=== PATIENT | male | born 1975 | race American Indian/Alaskan Native ===

== ENCOUNTER 2020-12-01 22:15 | Emergency (ER) | payer OTHER ==
[2020-12-01 22:28] VITALS: BP 142/106
[2020-12-01] MEDS ORDERED: LIDOCAINE (2%) 20 MG/1 ML VIAL 20 ML MDV INFILTRATI STA (22:43)
[2020-12-01] MEDS ORDERED: TETANUS,DIPH,PERTUSS(ACELL) VACCINE 0.5 ML SYRINGE IM ONE (22:43)
--- NOTE | 2020-12-01 23:28 | XRay Report ---
LEFT FINGER, 3 VIEWS INDICATION / CLINICAL INFORMATION: crush injury with deformity and laceration. COMPARISON: None available. FINDINGS: There is comminuted nondisplaced fracture throughout the distal phalanx of the middle finger. The fra cture extends vertically into the DIP joint. There is significant associated soft tissue trauma throu ghout the distal middle finger. The middle phalanx and proximal phalanx of the middle finger appear u ninvolved. IMPRESSION: Grossly comminuted nondisplaced fracture involving the distal phalanx of the middle finge r, with intra-articular extension to the DIP joint. Signer Name: Ros Stiles MD Signed: 12/01/2020 11:23 PM Workstation Name: [id number]
[2020-12-02] MEDS ORDERED: ceFAZolin 1 GM VIAL IM STA (00:05)
--- NOTE | 2020-12-02 00:24 | Emergency Department Report ---
Upper Extremity - HPI Chief Complaint: Wound/Laceration Stated Complaint: LEFT MIDDLE FINGER LACERATION Time Seen by Provider: 12/01/20 22:42 Upper Extremity: Left Middle Finger Occurred When: Today Mechanism: Crush (Accidentally closed fingers and the general house door resulting in pain) Severity: moderate Symptoms: Yes Pain with Movement, Yes Laceration or Abrasion, No Deformity, No Limited Range of Movement, No Numbness, No Weakness, No Swelling, No Bruising/Ecchymosis Other History: Dull throbbing pain with moderate bleeding to the fingertip which with but the deformity at the tip of the finger. ED Review of Systems ROS: Stated complaint: LEFT MIDDLE FINGER LACERATION Other details as noted in HPI Comment: All other systems reviewed and negative ED Past Medical Hx - Past Medical History Previous Medical History?: Yes Hx Hypertension: Yes Additional medical history: denies - Surgical History Past Surgical History?: Yes Additional Surgical History: left leg - Social History Smoking Status: Current Every Day Smoker Substance Use Type: None - Medications Home Medications: Home Medications Medication Instructions Recorded Confirmed Last Taken Type Ibuprofen [Motrin 600 MG tab] 600 mg PO Q8H PRN #20 tablet 03/10/16 Unknown Rx levoFLOXacin [Levaquin TAB] 500 mg PO QDAY #10 tablet 03/10/16 Unknown Rx cephALEXin [Keflex] 500 mg PO Q8HR #30 cap 12/02/20 Unknown Rx Upper Extremity Exam - Exam General: Vital signs noted. No distress. Alert and acting appropriately. Head and Torso: No HEENT Abnormality, No Neck Tenderness, No Chest/Lungs A bnormality, No Abdominal Tenderness, No Back Tenderness Shoulder Exam: Yes Normal Range of Motion in Shoulder, No Shoulder Tenderness, No Clavicle Tenderness, No Shoulder Deformity, No AC Joint Tenderness Arm Exam: No Arm/Humerus Tenderness, No Arm Deformity Elbow: No Elbow Tenderness, No Normal Range of Motion in Elbow, No Elbow Deformity Forearm: No Forearm Tenderness, No Forearm Deformity, No Pain with Pronation, No Pain with Supination Wrist: Yes Normal ROM in Wrist, No Wrist Tenderness, No Wrist Deformity, No Snuffbox Tenderness, No Pain with Axial Thumb Compression Hand: Yes Hand Tenderness, Yes Normal ROM in Digit(s), No Hand Deformity, No Digit Tenderness, No Digit(s) Deformity, No Tendon Dysfunction CMS Exam: Yes Broken Skin, No Normal Distal Pulses, No Normal Capillary Refill, No Normal Distal Sensation Hand L/R Back: 1 - Arc shaped laceration to this range of region with a partial fingertip avulsion and flexion deformity to the DIP joint. ED Course Vital Signs 12/01/20 22:26 Temperature 98.2 F Pulse Rate 76 Respiratory 18 Rate Blood Pressure 142/106 [Right] O2 Sat by Pulse 97 Oximetry - Laceration /Wound Repair Left Finger Wound Location: upper extremity Wound Length (cm): 3 Wound's Depth, Shape: irregular Wound Explored: clean Irrigated w/ Saline (ccs): 50 Betadine Prep?: Yes Anesthesia: 1% Lidocaine Volume Anesthetic (ccs): 5 Wound Debrided: moderate Wound Repaired With: sutures Suture Size/Type: 4:0, proline Number of Sutures: 6 Layer Closure?: No Sterile Dressing Applied?: Yes ED Medical Decision Making - Radiology Data Radiology results: report reviewed [address] [place] [id number] XRay Report Signed Patient: DENISSE SILVERMAN MR#: [id number] : 1975 Acct:[id number] Age/Sex: 45 / M ADM Date: 12/01/20 Loc: ED Attending Dr: Ordering Physician: GERRY DIAZ Date of Service: 12/01/20 Procedure(s): XR finger(s) 2+V LT Accession Number(s): [id number] cc: GERRY DIAZ Fluoro Time In Minutes: LEFT FINGER, 3 VIEWS INDICATION / CLINICAL INFORMATION: crush injury with deformity and laceration. COMPARISON: None available. FINDINGS: There is comminuted nondisplaced fracture throughout the distal phalanx of the middle finger. The fracture extends vertically into the DIP joint. There is significant associated soft tissue trauma throughout the distal middle finger. The middle phalanx and proximal phalanx of the middle finger appear uninvolved. IMPRESSION: Grossly comminuted nondisplaced fracture involving the distal phalanx of the middle finger, with intra-articular extension to the DIP joint. Signer Name: Ros Stiles MD Signed: 12/01/2020 11:23 PM Workstation Name: [id number] Transcribed By: JR Dictated By: Ros Stiles MD Electronically Authenticated By: Ros Stiles MD Signed Date/Time: 12/01/202322 DD/ 20 TD/TT: Print Critical care attestation.: If time is entered above; I have spent that time in minutes in the direct care of this critically ill patient, excluding procedure time. ED Disposition Clinical Impression: Fracture, finger, open Disposition: DC-01 TO HOME OR SELFCARE Is pt being admited?: No Does the pt Need Aspirin: No Condition: Stable Instructions: Finger Fracture, Adult, [id number], Cast or Splint Care, Adult, [id number] Prescriptions: cephALEXin [Keflex] 500 mg PO Q8HR #30 cap Referrals: ARNOLD MACIAS MD [Staff Physician] - 3-5 Days
[2020-12-02] MEDS ORDERED: ACETAMINOPHEN 500 MG TAB PO ONE (03:53)
[2020-12-02] MEDS ORDERED: HYDROcodone/ACETAMINOPHEN 7.5-325MG TAB PO ONE (03:53)
[2020-12-02] MEDS ORDERED: IBUPROFEN 600 MG TAB PO ONE (03:53)
[2020-12-02] MEDS ORDERED: ONDANSETRON 4 MG ODT TAB PO ONE (03:57)
== END 2020-12-02 01:00 | disposition home or self-care (01) ==
LOC: EEVIPCON 22:15 → ED 22:15
DX: S62.663B Nondisplaced fracture of distal phalanx of left middle finger, initial encounter for open fracture (principal); I10 Essential (primary) hypertension; F17.200 Nicotine dependence, unspecified, uncomplicated; Z98.890 Other specified postprocedural states; Z79.1 Long term (current) use of non-steroidal anti-inflammatories (NSAID); Z79.899 Other long term (current) drug therapy; X58.XXXA Exposure to other specified factors, initial encounter; Y93.89 Activity, other specified; Y92.89 Other specified places as the place of occurrence of the external cause; Y99.8 Other external cause status
CPT/HCPCS: 12002; 73140; 96372; 99283; J0690; 90715; Q0162